=== PATIENT | female | born 1940 | race Caucasian/White ===

== ENCOUNTER → 2022-01-09 | Outpatient (CLI) | payer MEDICARE, OTHER | LOC: KOH-I 01-06 09:00 | DX: S72.402A Unspecified fracture of lower end of left femur, initial encounter for closed fracture (principal); Z47.89 Encounter for other orthopedic aftercare | CPT/HCPCS: 73700 ==

== ENCOUNTER 2022-02-13 09:35 | Day surgery (SDC) | payer MEDICARE, OTHER ==
[~2022-02-13] VITALS: Ht 154.9 cm; Wt 64.0 kg
[2022-02-13] MEDS ORDERED: METOPROLOL TART25 MG PO (10:03)
[2022-02-13] MEDS ORDERED: NAMZARIC 28 MG1 EACH PO (10:04)
[2022-02-13] MEDS ORDERED: VITAMIN D325 MCG PO (10:04)
[2022-02-13] MEDS ORDERED: LINZESS72 MCG PO (10:05)
[2022-02-13] MEDS ORDERED: LACTULOSE10 GM/15 M PO (10:06)
[2022-02-13] MEDS ORDERED: ANALGESIC CREME86 GM TOP (10:08)
[2022-02-13] MEDS ORDERED: OYSTER SHELL C500 MG PO (10:15)
[2022-02-13] MEDS ORDERED: LOPERAMIDE2 MG PO (10:16)
[2022-02-13] MEDS ORDERED: ARTIFICIAL TEAR15 M3 EYEBOTH (10:18)
[2022-02-13] MEDS ORDERED: ACETAMINOPHEN500 MG PO (10:19)
[2022-02-13] MEDS ORDERED: ONDANSETRON HCL4 MG PO (10:20)
[2022-02-13] MEDS ORDERED: ROPINIROLE HC0.25 MG PO (10:21)
[2022-02-13 10:22] LABS: HEMOGLOBIN 14.3 gm/dl (12.3-15.3); RED BLOOD COUNT 4.89 M/UL (4.00-5.10); WHITE BLOOD COUNT 12.3 K/UL (4.5-11.0)
[2022-02-13] MEDS ORDERED: ATIVAN 1MG TABLE1 MG PO (10:22)
[2022-02-13] MEDS ORDERED: CARBIDOPA-LEVO1 EAC4 PO (10:24)
[2022-02-13] MEDS ORDERED: LIDOCAINE PAIN1 EACH TOP (10:25)
[2022-02-13] MEDS ORDERED: POTASSIUM CHLO20 ME1 PO (10:25)
[2022-02-13] MEDS ORDERED: PAROXETINE HCL10 MG PO (10:27)
[2022-02-13] MEDS ORDERED: BUSPIRONE HCL5 MG PO (10:28)
[2022-02-13] MEDS ORDERED: BACLOFEN10 MG PO (10:29)
[2022-02-13] MEDS ORDERED: AMLODIPINE BESYL5 MG PO (10:29)
[2022-02-13] MEDS ORDERED: ATENOLOL25 MG PO (10:30)
[2022-02-13] MEDS ORDERED: HYDROCODON-ACE1 EAC2 PO (10:31)
[2022-02-13] MEDS ORDERED: [UNRECOGNIZED DRUG - OTHER] PO (10:32)
[2022-02-13] MEDS ORDERED: OMEPRAZOLE20 MG PO (10:33)
[2022-02-13] MEDS ORDERED: PROLIA INJ60 MG/1 ML SC (10:34)
[2022-02-13] MEDS ORDERED: TAB-A-VITE MUL1 EACH PO (10:34)
[2022-02-13] MEDS ORDERED: CRESTOR40 MG PO (10:35)
[2022-02-13] MEDS ORDERED: VOLTAREN ARTHRI20 GM TOP ×2 (10:35→16:44)
[2022-02-13] MEDS ORDERED: ASPIRIN CHEWABL81 MG PO (16:16)
[2022-02-13] MEDS ORDERED: CILOSTAZOL50 MG PO (16:36)
[2022-02-14 02:22] LABS: WHITE BLOOD COUNT 12.2 K/UL (4.5-11.0)
[2022-02-14 02:23] LABS: RED BLOOD COUNT 4.16 M/UL (4.00-5.10)
[2022-02-14] MEDS ORDERED: ROXICODONE5 MG PO (14:11)
[2022-02-15 02:33] LABS: HEMOGLOBIN 11.6 gm/dl (12.3-15.3); WHITE BLOOD COUNT 12.6 K/UL (4.5-11.0)
[2022-02-15 02:51] LABS: BUN/CREATININE RATIO 20 (0-10)
--- NOTE | 2022-02-15 06:48 | NUR ---
received report from prior shift , call received at midnight. ambulance servic e stated it would not be tonight due to emergent calls
== END 2022-02-15 12:00 | disposition home or self-care (01) ==
LOC: OR 09:35 → M/S 13:18 → OR 02-15 12:00
PROVIDERS: Orthopaedic Surgery
DX: T84.84XA Pain due to internal orthopedic prosthetic devices, implants and grafts, initial encounter (principal); I10 Essential (primary) hypertension; G47.33 Obstructive sleep apnea (adult) (pediatric); G20 Parkinson's disease; F02.80 Dementia in other diseases classified elsewhere, unspecified severity, without behavioral disturbance, psychotic disturbance, mood disturbance, and anxiety; Z79.1 Long term (current) use of non-steroidal anti-inflammatories (NSAID); Z79.899 Other long term (current) drug therapy
CPT/HCPCS: 36415; 71045; 73552; 76000; 80048; 85025; 85027; 93005; J0690; J1100; J2001; J2270; J2405; J2704; J3010